=== PATIENT | male | born 1980 | race Caucasian/White ===

== ENCOUNTER 2024-06-08 17:46 | Emergency (ER) | payer OTHER ==
[2024-06-08 18:00] VITALS: BP 117/66; RESP 18; TEMP 99; BMI 28.0
[2024-06-08] MEDS ORDERED: ACETAMINOPHEN 325 MG TABLET (FP) PO ONE (18:19)
[2024-06-08] MEDS ORDERED: IBUPROFEN 400 MG TABLET (FP) PO ONE (19:20)
[2024-06-08] MEDS ORDERED: ACETAMINOPHEN 500 MG TABLET (FP) ONE (19:23)
[2024-06-08] MEDS: IBUPROFEN 400 MG TABLET (FP) PO ONE (19:27)
[2024-06-08] MEDS: ACETAMINOPHEN 500 MG TABLET (FP) PO ONE (19:28)
[2024-06-08 20:23] VITALS: PULSE 80
== END 2024-06-08 20:34 | disposition home or self-care (01) ==
LOC: JER 17:46
DX: R09.81 Nasal congestion (principal); R05.9 Cough, unspecified; M79.10 Myalgia, unspecified site; R06.02 Shortness of breath; R11.10 Vomiting, unspecified; B34.9 Viral infection, unspecified; Z20.822 Contact with and (suspected) exposure to COVID-19
CPT/HCPCS: 0241U-QW; 71046-TC-FY; 99284-25